=== PATIENT | male | born 1990 | race Caucasian/White ===

== ENCOUNTER 2022-07-09 13:09 | Emergency (ER) | payer OTHER, SELFPAY ==
[2022-07-09 13:10] VITALS: BP 152/98; PULSE 61; RESP 16; TEMP 36.6; O2SAT 98; BMI 27.9
--- NOTE | 2022-07-09 13:22 | EDS_ITS ---
HPI History of Present Illness Chief Complaint: Lower Extremity Injury Detail of Chief Complaint: In grown toenail left great toe Informant: patient Narrative Narrative: Patient presents with complaint of ingrown toenail. Patient states that it started bothering about a week ago. Patient states he chronically has issues with ingrown toenails and usually takes care of it himself. Patient denies any fevers. Denies trauma to the toe. PFSH PFSH Medical History no medical history Home Medications cephalexin 500 mg capsule 500 mg PO Q6 #40 CAPSULES 07/09/22 [Rx Last Taken Unknown] Allergy/AdvReac Type Severity Reaction Status Date / Time No Known Allergies Allergy Verified 07/09/22 13:11 Family History no significant family his Surgical History no surgical history Social History Smoking Status: Never smoker ROS ROS ED Review of Systems ROS Unobtainable: other Constitutional Constitutional ED: Reports lethargy; Denies chills, fever(s), sweats or weight loss Eyes Eyes: Denies blurry vision, change in vision or diplopia ENT ENT ED: Denies rhinorrhea or sore throat Cardiovascular Cardiovascular: Denies chest pain, orthopnea or racing heartbeat Respiratory/Chest Respiratory/Chest: Denies cough, dyspnea, dyspnea on exertion, orthopnea or sputum Gastrointestinal Gastrointestinal: Denies abdominal pain, diarrhea, nausea or vomiting Genitourinary Genitourinary ED: Denies dysuria, hematuria or urinary frequency Musculoskeletal Musculoskeletal: Reports other Details: Left great toe pain ; Denies arthralgias, back pain, myalgias or neck pain Integumentary Denies abscess, Abrasions or rash Neurologic Neurologic: Denies headache(s) or weakness Psychiatric Psychiatric: Denies anxiety, depression or suicidal thoughts Endocrine Endocrinology: Denies polydipsia, polyphagia or polyuria Hematologic/Lymphatic Hematologic/Lymphatic: Denies easy bleeding, easy bruising or lymphadenopathy Allergic/Immunologic Allergic/Immunologic ED: Denies mouth swelling, tongue swelling or urticaria EXAM Physical Exam Const Vital Signs: 07/09/22 13:10 Temperature 97.8 F Temperature Source Temporal Pulse Rate 61 Respiratory Rate 16 Blood Pressure 152/98 H Blood Pressure Mean 116 Pulse Ox 98 Oxygen Delivery Method Room Air Positive well nourished and well developed General Appearance ED: well developed and NAD HEENT Reports TM's clear and moist mucous membranes normocephalic and atraumatic; Negative for trauma or tenderness Tympanic Membrane ED: Yes TM's clear Eyes PERRL and EOMs intact bilaterally General Eye ED: Negative for pale conjunctiva or scleral icterus Neck no lymphadenopathy, supple and no JVD General: Negative for tenderness Chest Wall inspection of chest normal and palpation of chest normal Chest: Negative for tenderness Resp normal respiratory effort and clear to auscultation bilaterally Effort and Inspection: Negative for respiratory distress or pain with movement Auscultation: Negative for rhonchi, wheezes or diminished lung sounds Cardio regular rate, regular rhythm, S1 normal heart sound, S2 normal heart sound and no murmurs Peripheral Pulses: pulses 2+ throughout GI normal to inspection, nondistended, normoactive bowel sounds, soft to palpation, non-tender, non-distended and no masses Back/Spine no CVA tenderness and no thoracic nor lumbar tenderness Extremity Extremity Narrative: Left foot-patient does have a ingrown toenail left great toe over lateral aspect. Mild erythema. Minimal soft tissue swelling. No abscess. Neurovascularly intact. General Extremety ED: Negative for edema General Extremity: Negative for edema Neuro oriented x3, CN's II-XII intact bilaterally, no sensory deficits noted and gait normal Sensorium / Orientation: awake, alert, oriented to person, oriented to place and oriented to time Motor Exam: strength 5/5 throughout and strength abnormal Psych mental status grossly normal Skin no rashes or lesions noted and no wounds MDM MDM MDM Narrative Medical decision making narrative: Patient consented for partial resection of toenail for ingrown toenail. Patient will be started on Keflex. Patient given referral to podiatry for follow-up although he is from [place] and will be leaving to go back on July 21. Patient vies return if increasing pain, redness, swelling, or condition should worsen anyway. Procedures Other Procedures Procedure(s): Patient consented to partial nail removal for ingrown toenail. Area of the great toe sterilely draped and prepped. Anesthetized using 1% lidocaine total of 10 cc for digital block with good anesthesia. Curved hemostats were used to lift the nail off the nail bed. Scissors were used to cut the nail and then curved hemostats were used to grasp the nail and easily remove it with gentle traction. The nailbed was irrigated with saline. Clean dressing applied. Patient Toller procedure well. Discharge Plan Triage Chief Complaint: Lower Extremity Injury ED Provider: Carlos Enrique Rodrigues Dx/Rx/DC Orders Clinical Impression: Ingrowing toenail with infection Instructions: ED Ingrown Toenail, Excised Prescriptions: New cephalexin [cephalexin] 500 mg capsule 500 mg PO Q6 Qty: 40 0RF Primary Care Provider: Arlyn Castillo,Out of Referrals: Barrington Zapien DPM [Med Staff - Active Staff] - 5-7 Days Arlyn Doctor,Out of [Primary Care Provider] - Disposition Disposition: Home, Self Care
[2022-07-09] MEDS: Lidocaine 1% (20 ml mdv) 20 ML Vial 8 ML INFILT (14:00)
[2022-07-09] MEDS: Cephalexin 250 MG Capsule 500 MG PO (14:18)
== END 2022-07-09 14:27 | disposition home or self-care (01) ==
LOC: ED 14:18
PROVIDERS: Emergency Provider Emergency Medicine; Visit Provider Emergency Medicine
DX: L60.0 Ingrowing nail (principal)
CPT/HCPCS: 11730; 10120; 99283